=== PATIENT | female | born 1935 | race Two or more races ===

== ENCOUNTER 2017-11-30 10:37 | Emergency (ER) | payer MEDICARE, MEDICAID ==
[~2017-11-30] VITALS: Ht 154.9 cm; Wt 48.1 kg
[2017-11-30 10:50] VITALS: BP 137/78
[2017-11-30 12:21] LABS: Basophils # (auto) 0.1 uL; Basophils % (auto) 0.7 % (0.0-2.0); Eosinophils # (auto) 0.3 uL; Hematocrit 43.1 % (36.0-46.0); Hemoglobin 14.6 g/dL (12.2-16.2); Lymphocytes # (auto) 1.4 uL; Mean Corpuscular Hemoglobin 28.2 pg (28.0-32.0); Mean Corpuscular Hgb Conc. 33.9 g/dL (32.0-36.0); Mean Corpuscular Volume 83.3 fL (80.0-100.0); Monocytes # (auto) 0.7 uL; Monocytes % (auto) 7.4 % (0.0-12.0); Neutrophils # (auto) 6.9 uL; Neutrophils % (auto) 73.9 % (37.0-80.0); Nucleated Red Blood Cells % 0.1 %; Platelet Count (auto) 266 10^3/uL (140-450); Red Blood Cells 5.17 10^6/uL (4.0-5.20); Red Cell Distribution Width 13.6 % (11.8-14.3); White Blood Cell 9.4 10^3/uL (4.4-10.8)
[2017-11-30 12:55] LABS: Albumin 4.2 g/dL (3.4-5.0); BUN/Creatinine Ratio 17.8; Bilirubin, Total 0.5 mg/dL (0.2-1.0); Calcium 9.6 mg/dL (8.5-10.1); Potassium 3.7 mmol/L (3.5-5.1)
== END 2017-11-30 19:10 | disposition left against medical advice (07) ==
LOC: ER 10:37
DX: R51 Headache (principal); Z53.21 Procedure and treatment not carried out due to patient leaving prior to being seen by health care provider
CPT/HCPCS: 36415; 80053; 85025; 93005

== ENCOUNTER 2018-05-15 22:31 | Inpatient (IN) | payer MEDICARE, MEDICAID ==
[~2018-05-15] VITALS: Ht 154.9 cm; Wt 44.6 kg
[2018-05-15 23:07] LABS: Basophils # (auto) 0.1 uL; Eosinophils # (auto) 0.4 uL; Eosinophils % (auto) 4.1 % (0.0-7.0); Hematocrit 42.1 % (36.0-46.0); Hemoglobin 13.8 g/dL (12.2-16.2); Lymphocytes # (auto) 2.8 uL; Lymphocytes % (auto) 31.2 % (10.0-50.0); Mean Corpuscular Hgb Conc. 32.9 g/dL (32.0-36.0); Mean Corpuscular Volume 85.2 fL (80.0-100.0); Monocytes # (auto) 0.7 uL; Monocytes % (auto) 8.2 % (0.0-12.0); Neutrophils % (auto) 55.5 % (37.0-80.0); Platelet Count (auto) 259 10^3/uL (140-450); Red Blood Cells 4.94 10^6/uL (4.0-5.20); Red Cell Distribution Width 14.5 % (11.8-14.3); White Blood Cell 9.1 10^3/uL (4.4-10.8)
[2018-05-15 23:13] LABS: Urine Bacteria FEW /hpf (None Seen); Urine Blood 1+ /uL (Negative); Urine Specific Gravity 1.003 (1.001-1.035); Urine WBC 5 /hpf (0 - 5)
[2018-05-15 23:27] LABS: INR 0.96 (0.9-1.15); Partial Thromboplastin Time 27.6 sec (23.78-33.04); Prothrombin Time 10.3 sec (9.27-12.13)
[2018-05-15] MEDS ORDERED: KETOROLAC TROMETH 30 MG/ML 1ML VIAL IV ONE (23:30)
[2018-05-15 23:36] LABS: Alcohol, Urine < 3.0 mg/dL (0-5); Amphetamine Screen, Urine NEGATIVE (NEGATIVE); Barbiturate Scree,Urine NEGATIVE (NEGATIVE); Benzodiazephine Screen, Urine POSITIVE (NEGATIVE); Cannabinoid Screen, Urine NEGATIVE (NEGATIVE); Cocaine Screen, Urine NEGATIVE (NEGATIVE); Opiate Scree,Urine NEGATIVE (NEGATIVE)
[2018-05-15 23:37] LABS: Alanine Aminotransferase 12 U/L (13-56); Albumin 3.7 g/dL (3.4-5.0); Anion Gap 10 (5-15); Aspartate Aminotransferase 16 U/L (15-37); Blood Alcohol < 3.0 mg/dL (0-5); Blood Urea Nitrogen 19 mg/dL (7-18); Calcium 8.7 mg/dL (8.5-10.1); Carbon Dioxide 25 mmol/L (21-32); Chloride 103 mmol/L (98-107); GFR African American 93 mL/min; GFR Non-African American 77 mL/min; Glucose 92 mg/dL (74-106); Magnesium 2.2 mg/dL (1.6-2.6); Potassium 3.7 mmol/L (3.5-5.1); Sodium 138 mmol/L (136-145)
[2018-05-15 23:39] LABS: Phencyclidine Screen, Urine NEGATIVE (NEGATIVE)
[2018-05-15 23:42] LABS: Alkaline Phosphatase 80 U/L (45-117); Bilirubin, Total 0.3 mg/dL (0.2-1.0); Total Protein 7.5 g/dL (6.4-8.2)
[2018-05-16] MEDS ORDERED: CIPROFLOXACIN 400MG/200ML 200 ML IV ONE
[2018-05-16] MEDS ORDERED: SODIUM CHLORIDE 0.9% 1,000 ML IV ONE
[2018-05-16] MEDS ORDERED: ACETAMINOPHEN 325 MG TAB PO PRN (03:00)
[2018-05-16] MEDS ORDERED: NITROGLYCERIN 0.4 MG SL TAB SL PRN (03:00)
[2018-05-16] MEDS ORDERED: MORPHINE SULF(PF) 0.5MG/ML 10ML VIAL IV PRN (03:00)
[2018-05-16] MEDS ORDERED: SUMAtriptan SUCCINATE 25 MG TAB PO ONE (03:45)
[2018-05-16] MEDS: FAMOTIDINE 20 MG TAB PO SCH ×2 (10:30→21:21)
[2018-05-16] MEDS: ENOXAPARIN SOD 40 MG/0.4 ML SYRINGE SC SCH (10:30)
[2018-05-16] MEDS: NIFEdipine ER 30 MG TAB PO SCH (10:30)
[2018-05-16] MEDS: ONDANSETRON HCL 4 MG/2 ML VIAL IV PRN (11:10)
[2018-05-16] MEDS: SUMAtriptan SUCCINATE 25 MG TAB PO PRN (11:10)
[2018-05-16 20:10] VITALS: BP 122/63
[2018-05-16] MEDS: ATORVASTATIN 20 MG TAB PO SCH (21:21)
[2018-05-17] MEDS ORDERED: LEVOFLOXACIN 500MG 100 ML IV SCH (01:00)
[2018-05-17] MEDS ORDERED: ATOR20TA PO (01:58)
[2018-05-17] MEDS ORDERED: CYPR4TAB PO (01:58)
[2018-05-17] MEDS ORDERED: MECL12.554 PO (01:58)
[2018-05-17] MEDS ORDERED: NIFE30TA76 PO (01:58)
[2018-05-17 05:30] VITALS: BP 110/58
[2018-05-17 07:21] LABS: Albumin 3.1 g/dL (3.4-5.0); BUN/Creatinine Ratio 18.9; Basophils # (auto) 0 uL; Basophils % (auto) 0.6 % (0.0-2.0); Calcium 8.6 mg/dL (8.5-10.1); Eosinophils # (auto) 0.2 uL; Eosinophils % (auto) 2.9 % (0.0-7.0); Hematocrit 40.1 % (36.0-46.0); Hemoglobin 13.3 g/dL (12.2-16.2); Lymphocytes # (auto) 2.1 uL; Lymphocytes % (auto) 25.7 % (10.0-50.0); Mean Corpuscular Hemoglobin 28.7 pg (28.0-32.0); Mean Corpuscular Hgb Conc. 33.3 g/dL (32.0-36.0); Monocytes # (auto) 0.7 uL; Monocytes % (auto) 8.9 % (0.0-12.0); Neutrophils % (auto) 61.9 % (37.0-80.0); Nucleated Red Blood Cells % 0.2 %; Platelet Count (auto) 242 10^3/uL (140-450); Red Blood Cells 4.66 10^6/uL (4.0-5.20); Red Cell Distribution Width 14.4 % (11.8-14.3)
[2018-05-17 07:24] LABS: Bilirubin, Total 0.3 mg/dL (0.2-1.0); Total Protein 6.4 g/dL (6.4-8.2)
[2018-05-17 09:00] VITALS: BP 141/73
[2018-05-17] MEDS: FAMOTIDINE 20 MG TAB PO SCH ×2 (10:40→21:35)
[2018-05-17] MEDS: ENOXAPARIN SOD 40 MG/0.4 ML SYRINGE SC SCH (10:40)
[2018-05-17] MEDS: NIFEdipine ER 30 MG TAB PO SCH (10:40)
[2018-05-17 13:00] VITALS: BP 121/72
[2018-05-17] MEDS: SUMAtriptan SUCCINATE 25 MG TAB PO PRN (16:07)
[2018-05-17 18:00] VITALS: BP 137/75
[2018-05-17] MEDS: DOCUSATE SOD 100 MG CAP PO SCH (21:35)
[2018-05-17] MEDS: ATORVASTATIN 20 MG TAB PO SCH (21:35)
[2018-05-17 22:00] VITALS: BP 121/61
[2018-05-18 05:00] VITALS: BP 114/61
[2018-05-18 09:00] VITALS: BP 121/62
[2018-05-18] MEDS: FAMOTIDINE 20 MG TAB PO SCH ×2 (10:30→21:31)
[2018-05-18] MEDS: NIFEdipine ER 30 MG TAB PO SCH (10:30)
[2018-05-18] MEDS: ENOXAPARIN SOD 40 MG/0.4 ML SYRINGE SC SCH (10:31)
[2018-05-18] MEDS: DOCUSATE SOD 100 MG CAP PO SCH ×2 (10:31→21:35)
[2018-05-18] MEDS ORDERED: LORazepam 2MG/ML-1ML VIAL IV ONE (12:15)
[2018-05-18 13:00] VITALS: BP 125/66
[2018-05-18] MEDS: ATORVASTATIN 20 MG TAB PO SCH (21:31)
[2018-05-18] MEDS: HYDROcodone-ACET 5/325MG TAB PO PRN (21:38)
[2018-05-18 22:00] VITALS: BP 131/68
[2018-05-19 05:00] VITALS: BP 128/63
[2018-05-19 07:23] LABS: Cholesterol 125 mg/dL (< 200); HDL Cholesterol 42 mg/dL (40-59); LDL Cholesterol 79 mg/dL (< 100); Triglycerides 142 mg/dL (< 150)
[2018-05-19] MEDS: FAMOTIDINE 20 MG TAB PO SCH ×2 (09:13→22:00)
[2018-05-19] MEDS: DOCUSATE SOD 100 MG CAP PO SCH ×2 (09:14→22:00)
[2018-05-19] MEDS: ENOXAPARIN SOD 40 MG/0.4 ML SYRINGE SC SCH (09:14)
[2018-05-19] MEDS: NIFEdipine ER 30 MG TAB PO SCH (09:14)
[2018-05-19] MEDS: SUMAtriptan SUCCINATE 25 MG TAB PO PRN ×2 (09:15→13:30)
[2018-05-19] MEDS: ONDANSETRON HCL 4 MG/2 ML VIAL IV PRN (10:23)
[2018-05-19 21:47] VITALS: BP 149/76
[2018-05-19] MEDS: ATORVASTATIN 20 MG TAB PO SCH (22:00)
[2018-05-19] MEDS: SULFAMETHOX W/TRIMETH(800/160MG) DS TAB PO SCH (22:00)
[2018-05-19] MEDS: TEMAZEPAM 15 MG CAP PO PRN (23:44)
[2018-05-20 04:46] VITALS: BP 124/69
[2018-05-20 08:17] VITALS: BP 137/77
[2018-05-20] MEDS: FAMOTIDINE 20 MG TAB PO SCH ×2 (09:22→21:31)
[2018-05-20] MEDS: ENOXAPARIN SOD 40 MG/0.4 ML SYRINGE SC SCH (09:22)
[2018-05-20] MEDS: NIFEdipine ER 30 MG TAB PO SCH (09:23)
[2018-05-20] MEDS: DOCUSATE SOD 100 MG CAP PO SCH ×2 (09:23→21:31)
[2018-05-20] MEDS: SULFAMETHOX W/TRIMETH(800/160MG) DS TAB PO SCH ×3 (09:26→21:30)
[2018-05-20 12:46] VITALS: BP 136/74
[2018-05-20] MEDS: HYDROcodone-ACET 5/325MG TAB PO PRN (13:03)
[2018-05-20 16:42] VITALS: BP 156/83
[2018-05-20] MEDS: LORazepam 0.5 MG TAB PO PRN (17:01)
[2018-05-20] MEDS: SUMAtriptan SUCCINATE 25 MG TAB PO PRN (17:01)
[2018-05-20] MEDS: ATORVASTATIN 20 MG TAB PO SCH (21:31)
[2018-05-20 21:54] VITALS: BP 133/72
[2018-05-20] MEDS: BOOST PLUS 8 ounce PO SCH (22:00)
[2018-05-21 04:51] VITALS: BP 119/63
[2018-05-21] MEDS: BOOST PLUS 8 ounce PO SCH ×3 (06:00→21:32)
[2018-05-21 09:17] VITALS: BP 152/75
[2018-05-21] MEDS: ENOXAPARIN SOD 40 MG/0.4 ML SYRINGE SC SCH (10:01)
[2018-05-21] MEDS: DOCUSATE SOD 100 MG CAP PO SCH ×2 (10:01→21:32)
[2018-05-21] MEDS: FAMOTIDINE 20 MG TAB PO SCH ×2 (10:01→21:33)
[2018-05-21] MEDS: SULFAMETHOX W/TRIMETH(800/160MG) DS TAB PO SCH ×2 (10:02→21:31)
[2018-05-21] MEDS: NIFEdipine ER 30 MG TAB PO SCH (10:02)
[2018-05-21] MEDS: LORazepam 0.5 MG TAB PO PRN (10:04)
[2018-05-21 12:44] VITALS: BP 116/70
[2018-05-21 16:44] VITALS: BP 122/70
[2018-05-21] MEDS: ATORVASTATIN 20 MG TAB PO SCH (21:32)
[2018-05-21] MEDS: TEMAZEPAM 15 MG CAP PO PRN (21:33)
[2018-05-21 21:39] VITALS: BP 99/53
[2018-05-22 04:56] VITALS: BP 95/56
[2018-05-22] MEDS: BOOST PLUS 8 ounce PO SCH ×2 (06:00→14:04)
[2018-05-22 08:30] VITALS: BP 119/60
[2018-05-22 10:49] VITALS: BP 119/60
[2018-05-22 12:07] VITALS: BP 138/78
[2018-05-22] MEDS: DOCUSATE SOD 100 MG CAP PO SCH (12:54)
[2018-05-22] MEDS: SULFAMETHOX W/TRIMETH(800/160MG) DS TAB PO SCH (12:54)
[2018-05-22] MEDS: FAMOTIDINE 20 MG TAB PO SCH (12:54)
[2018-05-22] MEDS: NIFEdipine ER 30 MG TAB PO SCH (12:55)
[2018-05-22] MEDS: ENOXAPARIN SOD 40 MG/0.4 ML SYRINGE SC SCH (12:55)
== END 2018-05-22 19:00 | disposition home or self-care (01) | DRG 52 ==
LOC: ER 22:35 → TELE 22:36 → TELE-CENTR 05-16 19:50
PROVIDERS: ADMIT Nurse Practitioner; ATTEND Internal Medicine Pulmonary Disease
DX: G93.41 Metabolic encephalopathy (principal); E46 Unspecified protein-calorie malnutrition; F03.90 Unspecified dementia, unspecified severity, without behavioral disturbance, psychotic disturbance, mood disturbance, and anxiety; N39.0 Urinary tract infection, site not specified; K59.00 Constipation, unspecified; I10 Essential (primary) hypertension; R51 Headache; B96.20 Unspecified Escherichia coli [E. coli] as the cause of diseases classified elsewhere; E78.5 Hyperlipidemia, unspecified; F41.9 Anxiety disorder, unspecified; I70.0 Atherosclerosis of aorta; I70.90 Unspecified atherosclerosis; Z68.1 Body mass index [BMI] 19.9 or less, adult; Z88.0 Allergy status to penicillin; Z79.899 Other long term (current) drug therapy
CPT/HCPCS: 36415; 70450; 70551; 71045; 80053; 80061; 80307; 80320; 81001; 82962; 83605; 83735; 84484; 85025; 85379; 85610; 85652; 85730; 87040; 87086; 87088; 87186; 93306; 93886; 94761; 95819; 96365; 96372; 96375; 97116; 97163; 97530; J1885; J1956; J2405

== ENCOUNTER 2018-08-10 18:39 | Inpatient (IN) | payer MEDICARE, MEDICAID ==
[~2018-08-10] VITALS: Ht 152.4 cm; Wt 41.2 kg
[~2018-08-10 18:39] MED LIST: ATOR20TA PO; CYPR4TAB50 PO; MECL12.554 PO; NIFE30TA76 PO
[2018-08-10] MEDS ORDERED: SODIUM CHLORIDE 0.9% 1,000 ML IV ONE (20:17)
[2018-08-10 20:21] LABS: Alanine Aminotransferase 9 U/L (13-56); Albumin 3.9 g/dL (3.4-5.0); Anion Gap 11 (5-15); Aspartate Aminotransferase 17 U/L (15-37); Blood Urea Nitrogen 15 mg/dL (7-18); Calcium 8.9 mg/dL (8.5-10.1); Carbon Dioxide 22 mmol/L (21-32); Chloride 97 mmol/L (98-107); GFR African American 68 mL/min; GFR Non-African American 56 mL/min; Glucose 152 mg/dL (74-106); Potassium 3.5 mmol/L (3.5-5.1); Sodium 130 mmol/L (136-145)
[2018-08-10 20:24] LABS: Basophils # (auto) 0.1 uL; Basophils % (auto) 0.5 % (0.0-2.0); Eosinophils # (auto) 0 uL; Eosinophils % (auto) 0.4 % (0.0-7.0); Hematocrit 40.8 % (36.0-46.0); Hemoglobin 13.5 g/dL (12.2-16.2); Lymphocytes # (auto) 1.4 uL; Lymphocytes % (auto) 12.7 % (10.0-50.0); Mean Corpuscular Hemoglobin 28.5 pg (28.0-32.0); Mean Corpuscular Hgb Conc. 33.2 g/dL (32.0-36.0); Mean Corpuscular Volume 85.8 fL (80.0-100.0); Monocytes % (auto) 8.5 % (0.0-12.0); Neutrophils # (auto) 8.8 uL; Neutrophils % (auto) 77.9 % (37.0-80.0); Nucleated Red Blood Cells % 0.1 %; Platelet Count (auto) 216 10^3/uL (140-450); Red Blood Cells 4.75 10^6/uL (4.0-5.20); Red Cell Distribution Width 14.1 % (11.8-14.3); White Blood Cell 11.3 10^3/uL (4.4-10.8)
[2018-08-10 20:30] LABS: Alkaline Phosphatase 78 U/L (45-117); Bilirubin, Total 0.5 mg/dL (0.2-1.0); Total Protein 7.7 g/dL (6.4-8.2)
[2018-08-10] MEDS ORDERED: LEVOFLOXACIN 500MG 100 ML IV ONE (20:30)
[2018-08-10 22:42] LABS: Urine Bacteria NONE SEEN /hpf (None Seen); Urine Blood 2+ /uL (Negative); Urine Mucus FEW (None Seen); Urine Specific Gravity 1.011 (1.001-1.035); Urine WBC 1 /hpf (0 - 5)
[2018-08-10] MEDS ORDERED: ALBUTEROL SULF 2.5 MG/0.5ML(0.5%) NEB SOLN NEB PRN (23:00)
[2018-08-10] MEDS ORDERED: DOCUSATE SOD 100 MG CAP PO PRN (23:00)
[2018-08-10] MEDS ORDERED: ONDANSETRON HCL 4 MG/2 ML VIAL IV PRN (23:00)
[2018-08-10] MEDS ORDERED: SODIUM CHLORIDE 0.9% 1,000 ML IV SCH (23:00)
[2018-08-10 23:40] VITALS: BP 159/80
[2018-08-10] MEDS: HYDROcodone-ACET 5/325MG TAB PO PRN (23:59)
[2018-08-11] MEDS ORDERED: SODIUM CHLORIDE 0.9% 1,000 ML IV ONE (01:00)
[2018-08-11] MEDS ORDERED: methylPREDNISolone SOD SUCC 125 MG/2 ML VL IV ONE (01:00)
[2018-08-11] MEDS ORDERED: IBUP200T76 PO (03:09)
[2018-08-11] MEDS ORDERED: ASPITAB34 OR (03:09)
[2018-08-11] MEDS ORDERED: LORA-654 PO (03:09)
[2018-08-11] MEDS ORDERED: ESOM40CA39 PO (03:09)
[2018-08-11] MEDS ORDERED: ALBUAER3 IN (03:09)
[2018-08-11] MEDS ORDERED: ACET650T4 PO (03:09)
[2018-08-11] MEDS ORDERED: ASPI-498 OR (03:45)
[2018-08-11 05:00] VITALS: BP 129/60
[2018-08-11 06:34] LABS: Basophils # (auto) 0 uL; Basophils % (auto) 0.1 % (0.0-2.0); Eosinophils # (auto) 0 uL; Hematocrit 38.5 % (36.0-46.0); Lymphocytes # (auto) 0.5 uL; Mean Corpuscular Hemoglobin 28.8 pg (28.0-32.0); Mean Corpuscular Hgb Conc. 33.7 g/dL (32.0-36.0); Mean Corpuscular Volume 85.5 fL (80.0-100.0); Monocytes # (auto) 0.2 uL; Monocytes % (auto) 1.9 % (0.0-12.0); Neutrophils # (auto) 7.6 uL; Platelet Count (auto) 197 10^3/uL (140-450); Red Blood Cells 4.51 10^6/uL (4.0-5.20); White Blood Cell 8.3 10^3/uL (4.4-10.8)
[2018-08-11 06:54] LABS: Albumin 3.2 g/dL (3.4-5.0); Blood Urea Nitrogen 12 mg/dL (7-18); Chloride 105 mmol/L (98-107); Potassium 3.6 mmol/L (3.5-5.1); Sodium 137 mmol/L (136-145)
[2018-08-11 06:57] LABS: Anion Gap 8 (5-15); Aspartate Aminotransferase 8 U/L (15-37); BUN/Creatinine Ratio 17.1; Carbon Dioxide 24 mmol/L (21-32); GFR African American 103 mL/min; GFR Non-African American 85 mL/min; Glucose 148 mg/dL (74-106)
[2018-08-11 07:02] LABS: Alanine Aminotransferase 9 U/L (13-56); Alkaline Phosphatase 65 U/L (45-117); Bilirubin, Total 0.4 mg/dL (0.2-1.0); Total Protein 6.8 g/dL (6.4-8.2)
[2018-08-11 08:00] VITALS: BP_SYST 122; BP_SYST 132; BP_DIAS 66; BP_DIAS 72
[2018-08-11] MEDS: HYDROcodone-ACET 5/325MG TAB PO PRN ×2 (08:54→16:45)
[2018-08-11] MEDS ORDERED: methylPREDNISolone SOD SUCC 125 MG/2 ML VL IV SCH (10:00)
[2018-08-11] MEDS: ENOXAPARIN SOD 30 MG/0.3 ML SYRINGE SC SCH (10:06)
[2018-08-11] MEDS: NIFEdipine ER 30 MG TAB PO SCH (10:07)
[2018-08-11] MEDS: FAMOTIDINE 20 MG TAB PO SCH (10:07)
[2018-08-11 12:00] VITALS: BP 130/64
[2018-08-11] MEDS: ACETAMINOPHEN 325 MG TAB PO PRN (12:17)
[2018-08-11 17:00] VITALS: BP 136/72
[2018-08-11] MEDS: guaiFENesin-DM 100/10mg/5ml SYR PO PRN (17:48)
[2018-08-11] MEDS: ATORVASTATIN 20 MG TAB PO SCH (21:07)
[2018-08-11] MEDS: methylPREDNISolone SOD SUCC 125 MG/2 ML VL IV SCH (21:07)
[2018-08-11] MEDS: TEMAZEPAM 15 MG CAP PO PRN (21:10)
[2018-08-11 21:55] VITALS: BP 123/63
[2018-08-12] MEDS: HYDROcodone-ACET 5/325MG TAB PO PRN ×2 (04:36→16:00)
[2018-08-12 05:00] VITALS: BP 137/67
[2018-08-12] MEDS ORDERED: SODIUM CHLORIDE 0.9% 1,000 ML IV SCH (05:00)
[2018-08-12 06:30] LABS: Basophils # (auto) 0 uL; Basophils % (auto) 0.1 % (0.0-2.0); Eosinophils # (auto) 0 uL; Hematocrit 38.4 % (36.0-46.0); Hemoglobin 12.6 g/dL (12.2-16.2); Lymphocytes # (auto) 0.8 uL; Lymphocytes % (auto) 6.7 % (10.0-50.0); Mean Corpuscular Hemoglobin 28.4 pg (28.0-32.0); Mean Corpuscular Hgb Conc. 32.9 g/dL (32.0-36.0); Mean Corpuscular Volume 86.3 fL (80.0-100.0); Monocytes # (auto) 0.6 uL; Monocytes % (auto) 4.9 % (0.0-12.0); Neutrophils # (auto) 10.8 uL; Neutrophils % (auto) 88.3 % (37.0-80.0); Platelet Count (auto) 209 10^3/uL (140-450); Red Blood Cells 4.45 10^6/uL (4.0-5.20); White Blood Cell 12.2 10^3/uL (4.4-10.8)
[2018-08-12 06:47] LABS: BUN/Creatinine Ratio 20.4; Calcium 8.2 mg/dL (8.5-10.1); Magnesium 2.2 mg/dL (1.6-2.6); Potassium 3.1 mmol/L (3.5-5.1)
[2018-08-12 08:21] VITALS: BP 134/83
[2018-08-12] MEDS: FAMOTIDINE 20 MG TAB PO SCH (09:49)
[2018-08-12] MEDS: methylPREDNISolone SOD SUCC 125 MG/2 ML VL IV SCH ×2 (09:49→21:31)
[2018-08-12] MEDS: NIFEdipine ER 30 MG TAB PO SCH (09:50)
[2018-08-12] MEDS: ENOXAPARIN SOD 30 MG/0.3 ML SYRINGE SC SCH (09:50)
[2018-08-12 12:30] VITALS: BP 156/66
[2018-08-12] MEDS ORDERED: POTASSIUM CHL 20 Meq TABLET PO ONE (14:00)
[2018-08-12] MEDS ORDERED: LORazepam 0.5 MG TAB PO PRN (14:00)
[2018-08-12] MEDS: SODIUM CHLORIDE 0.9% 1,000 ML IV SCH (14:00)
[2018-08-12] MEDS: ASPirin-EC 81 mg tab PO SCH (16:00)
[2018-08-12 16:12] VITALS: BP 139/67
[2018-08-12] MEDS: ATORVASTATIN 20 MG TAB PO SCH (21:31)
[2018-08-12 21:32] VITALS: BP 115/48
[2018-08-12] MEDS: TEMAZEPAM 15 MG CAP PO PRN (21:32)
[2018-08-12] MEDS: ACETAMINOPHEN 325 MG TAB PO PRN (21:32)
[2018-08-12] MEDS ORDERED: LEVOFLOXACIN 750MG 150 ML IV SCH (22:00)
[2018-08-13 05:48] LABS: Basophils # (auto) 0 uL; Basophils % (auto) 0.1 % (0.0-2.0); Eosinophils # (auto) 0 uL; Hematocrit 41.5 % (36.0-46.0); Hemoglobin 13.5 g/dL (12.2-16.2); Lymphocytes # (auto) 0.9 uL; Lymphocytes % (auto) 6.7 % (10.0-50.0); Mean Corpuscular Hgb Conc. 32.6 g/dL (32.0-36.0); Mean Corpuscular Volume 85.9 fL (80.0-100.0); Monocytes # (auto) 0.3 uL; Neutrophils # (auto) 12.5 uL; Neutrophils % (auto) 91.2 % (37.0-80.0); Nucleated Red Blood Cells % 0.1 %; Platelet Count (auto) 239 10^3/uL (140-450); Red Blood Cells 4.83 10^6/uL (4.0-5.20); Red Cell Distribution Width 14.4 % (11.8-14.3); White Blood Cell 13.7 10^3/uL (4.4-10.8)
[2018-08-13 05:49] VITALS: BP 111/63
[2018-08-13 08:30] VITALS: BP 135/77
[2018-08-13] MEDS: ENOXAPARIN SOD 30 MG/0.3 ML SYRINGE SC SCH (09:55)
[2018-08-13] MEDS: ASPirin-EC 81 mg tab PO SCH (09:55)
[2018-08-13] MEDS: methylPREDNISolone SOD SUCC 125 MG/2 ML VL IV SCH ×2 (09:55→22:10)
[2018-08-13] MEDS: FAMOTIDINE 20 MG TAB PO SCH (09:56)
[2018-08-13] MEDS: NIFEdipine ER 30 MG TAB PO SCH (09:57)
[2018-08-13 12:54] VITALS: BP 119/56
[2018-08-13] MEDS: HYDROcodone-ACET 5/325MG TAB PO PRN (13:33)
[2018-08-13] MEDS: SODIUM CHLORIDE 0.9% 1,000 ML IV SCH (16:38)
[2018-08-13 16:46] VITALS: BP 148/76
[2018-08-13 22:00] VITALS: BP 138/67
[2018-08-13] MEDS: ATORVASTATIN 20 MG TAB PO SCH (22:10)
[2018-08-13 22:40] VITALS: BP 148/76
[2018-08-13] MEDS: TEMAZEPAM 15 MG CAP PO PRN (22:42)
[2018-08-13] MEDS: ACETAMINOPHEN 325 MG TAB PO PRN (22:42)
[2018-08-14] MEDS: SODIUM CHLORIDE 0.9% 1,000 ML IV SCH (03:25)
[2018-08-14 05:00] VITALS: BP 132/60
[2018-08-14 06:14] LABS: Basophils # (auto) 0 uL; Eosinophils # (auto) 0 uL; Hematocrit 41.1 % (36.0-46.0); Hemoglobin 13.5 g/dL (12.2-16.2); Lymphocytes # (auto) 0.9 uL; Lymphocytes % (auto) 8.3 % (10.0-50.0); Mean Corpuscular Hemoglobin 28.3 pg (28.0-32.0); Mean Corpuscular Hgb Conc. 32.8 g/dL (32.0-36.0); Mean Corpuscular Volume 86.3 fL (80.0-100.0); Monocytes # (auto) 0.4 uL; Monocytes % (auto) 4.1 % (0.0-12.0); Neutrophils % (auto) 87.6 % (37.0-80.0); Nucleated Red Blood Cells % 0.1 %; Platelet Count (auto) 236 10^3/uL (140-450); Red Blood Cells 4.77 10^6/uL (4.0-5.20); Red Cell Distribution Width 14.3 % (11.8-14.3); White Blood Cell 10.3 10^3/uL (4.4-10.8)
[2018-08-14 08:33] VITALS: BP 139/68
[2018-08-14] MEDS: FAMOTIDINE 20 MG TAB PO SCH (09:37)
[2018-08-14] MEDS: NIFEdipine ER 30 MG TAB PO SCH (09:37)
[2018-08-14] MEDS: ENOXAPARIN SOD 30 MG/0.3 ML SYRINGE SC SCH (09:37)
[2018-08-14] MEDS: HYDROcodone-ACET 5/325MG TAB PO PRN (09:37)
[2018-08-14] MEDS: ASPirin-EC 81 mg tab PO SCH (09:38)
[2018-08-14] MEDS ORDERED: methylPREDNISolone SOD SUCC 40 MG/ML VL IV SCH (10:00)
[2018-08-14] MEDS ORDERED: HYDROcodone-ACET 5/325MG TAB PO PRN (11:15)
[2018-08-14] MEDS ORDERED: LEVOFLOXACIN 750MG 150 ML IV ONE (11:30)
[2018-08-14 13:00] VITALS: BP 172/74
[2018-08-14 17:00] VITALS: BP 119/57
[2018-08-14] MEDS: ATORVASTATIN 20 MG TAB PO SCH (21:32)
[2018-08-14] MEDS: TEMAZEPAM 15 MG CAP PO PRN (21:32)
[2018-08-14] MEDS: methylPREDNISolone SOD SUCC 40 MG/ML VL IV SCH (21:32)
[2018-08-14] MEDS: guaiFENesin-DM 100/10mg/5ml SYR PO PRN (21:37)
[2018-08-14 22:00] VITALS: BP 140/69
[2018-08-15 05:00] VITALS: BP 149/70
[2018-08-15 06:21] LABS: INR 1.05 (0.9-1.15); Prothrombin Time 11.2 sec (9.27-12.13)
[2018-08-15 09:00] VITALS: BP 151/75
[2018-08-15] MEDS ORDERED: LEVOFLOXACIN 750MG 150 ML IV SCH (10:00)
[2018-08-15] MEDS: ENOXAPARIN SOD 30 MG/0.3 ML SYRINGE SC SCH (10:00)
[2018-08-15] MEDS: ASPirin-EC 81 mg tab PO SCH (10:52)
[2018-08-15] MEDS: FAMOTIDINE 20 MG TAB PO SCH (10:53)
[2018-08-15] MEDS: NIFEdipine ER 30 MG TAB PO SCH (10:53)
[2018-08-15] MEDS: methylPREDNISolone SOD SUCC 40 MG/ML VL IV SCH (10:55)
[2018-08-15] MEDS ORDERED: LEVO750T2 PO (11:07)
[2018-08-15] MEDS ORDERED: SACC250C PO (11:07)
[2018-08-15 12:04] VITALS: BP 151/75
[2018-08-15 13:00] VITALS: BP 139/70
[2018-08-15] MEDS: guaiFENesin-DM 100/10mg/5ml SYR PO PRN (13:24)
[2018-08-16] MEDS ORDERED: LEVOFLOXACIN 750MG 150 ML IV SCH (10:00)
== END 2018-08-15 14:35 | disposition home or self-care (01) | DRG 140 ==
LOC: ER 18:39 → EAST 18:40
PROVIDERS: ADMIT Nurse Practitioner; ATTEND Internal Medicine
DX: J44.1 Chronic obstructive pulmonary disease with (acute) exacerbation (principal); J69.0 Pneumonitis due to inhalation of food and vomit; J96.00 Acute respiratory failure, unspecified whether with hypoxia or hypercapnia; A31.0 Pulmonary mycobacterial infection; J44.0 Chronic obstructive pulmonary disease with (acute) lower respiratory infection; E78.5 Hyperlipidemia, unspecified; F41.9 Anxiety disorder, unspecified; I10 Essential (primary) hypertension; Z86.73 Personal history of transient ischemic attack (TIA), and cerebral infarction without residual deficits; Z88.0 Allergy status to penicillin; Z79.899 Other long term (current) drug therapy; I25.2 Old myocardial infarction; Z79.82 Long term (current) use of aspirin
CPT/HCPCS: 36415; 71046; 71250; 80048; 80053; 81001; 83605; 83735; 83880; 84132; 84484; 85025; 85379; 85610; 87040; 87070; 87077; 87086; 87186; 87205; 87804; 93005; 96361; 96365; 96366; 96375; 97116; 97163; J1956

== ENCOUNTER 2018-11-14 18:37 | Emergency (ER) | payer MEDICARE, MEDICAID ==
[~2018-11-14] VITALS: Ht 154.9 cm; Wt 59.0 kg
[~2018-11-14 18:37] MED LIST changes: +ACET650T4 PO; +ALBUAER3 IN; +ASPI-498 OR; +ASPITAB34 OR; -CYPR4TAB50 PO; +ESOM40CA39 PO; +IBUP200T76 PO; +LEVO750T2 PO; +LORA-654 PO; -MECL12.554 PO; +SACC250C PO
[2018-11-14] MEDS ORDERED: ASPirin 81 mg TAB PO ONE (19:00)
[2018-11-14] MEDS ORDERED: SODIUM CHLORIDE 0.9% 500 ML IV ONE ×2 (19:15→21:15)
[2018-11-14 19:35] LABS: Basophils # (auto) 0.1 uL; Basophils % (auto) 0.6 % (0.0-2.0); Eosinophils # (auto) 0.2 uL; Eosinophils % (auto) 2.4 % (0.0-7.0); Hematocrit 42.7 % (36.0-46.0); Hemoglobin 14.1 g/dL (12.2-16.2); Lymphocytes # (auto) 2.7 uL; Lymphocytes % (auto) 27.4 % (10.0-50.0); Mean Corpuscular Hemoglobin 28.4 pg (28.0-32.0); Mean Corpuscular Hgb Conc. 32.9 g/dL (32.0-36.0); Mean Corpuscular Volume 86.2 fL (80.0-100.0); Monocytes # (auto) 0.8 uL; Monocytes % (auto) 8.3 % (0.0-12.0); Neutrophils # (auto) 5.9 uL; Neutrophils % (auto) 61.3 % (37.0-80.0); Nucleated Red Blood Cells % 0.1 %; Platelet Count (auto) 244 10^3/uL (140-450); Red Blood Cells 4.96 10^6/uL (4.0-5.20); White Blood Cell 9.7 10^3/uL (4.4-10.8)
[2018-11-14 19:53] LABS: Alanine Aminotransferase 11 U/L (13-56); Albumin 4.1 g/dL (3.4-5.0); Anion Gap 12 (5-15); Aspartate Aminotransferase 15 U/L (15-37); BUN/Creatinine Ratio 22.2; Blood Urea Nitrogen 18 mg/dL (7-18); Calcium 8.9 mg/dL (8.5-10.1); Carbon Dioxide 21 mmol/L (21-32); Chloride 106 mmol/L (98-107); GFR African American 87 mL/min; GFR Non-African American 72 mL/min; Glucose 117 mg/dL (74-106); Sodium 139 mmol/L (136-145)
[2018-11-14 19:54] LABS: INR 0.98 (0.9-1.15); Partial Thromboplastin Time 27.7 sec (23.78-33.04); Prothrombin Time 10.5 sec (9.27-12.13)
[2018-11-14 19:58] LABS: Alkaline Phosphatase 78 U/L (45-117); Bilirubin, Total 0.4 mg/dL (0.2-1.0); Total Protein 7.7 g/dL (6.4-8.2)
[2018-11-14 20:35] LABS: Urine Bacteria FEW /hpf (None Seen); Urine Blood 2+ /uL (Negative); Urine Specific Gravity 1.005 (1.001-1.035); Urine WBC 14 /hpf (0 - 5)
[2018-11-14] MEDS ORDERED: D5W/ SOD CHL 0.9%/KCL 20MEQ 1,000 ML IV ONE (21:15)
[2018-11-14] MEDS ORDERED: cefTRIAXone 1GM/50ML D5W 50 ML IV ONE (21:15)
[2018-11-14] MEDS ORDERED: POTASSIUM CHL 20 Meq TABLET PO ONE (23:30)
[2018-11-14 23:41] VITALS: BP 140/75
== END 2018-11-14 23:49 | disposition home or self-care (01) ==
LOC: EDBD 18:37 → ER 18:39
DX: N39.0 Urinary tract infection, site not specified (principal); E86.0 Dehydration; I10 Essential (primary) hypertension; E78.5 Hyperlipidemia, unspecified; I25.2 Old myocardial infarction; Z86.73 Personal history of transient ischemic attack (TIA), and cerebral infarction without residual deficits; Z79.899 Other long term (current) drug therapy; Z88.0 Allergy status to penicillin
CPT/HCPCS: 36415; 71045; 80053; 81001; 83605; 83735; 83880; 84443; 84484; 85025; 85379; 85610; 85730; 87040; 87086; 93005; 94761; 96361; 96365; 99284; J0696; J7030

== ENCOUNTER 2019-02-21 19:31 | Emergency (ER) | payer MEDICARE, MEDICAID ==
[~2019-02-21] VITALS: Ht 152.4 cm; Wt 47.6 kg
[2019-02-21 22:24] LABS: Basophils # (auto) 0 uL; Basophils % (auto) 0.5 % (0.0-2.0); Eosinophils # (auto) 0.1 uL; Eosinophils % (auto) 0.9 % (0.0-7.0); Hematocrit 43.1 % (36.0-46.0); Hemoglobin 14.3 g/dL (12.2-16.2); Lymphocytes # (auto) 1.5 uL; Lymphocytes % (auto) 17.2 % (10.0-50.0); Mean Corpuscular Hemoglobin 28.2 pg (28.0-32.0); Mean Corpuscular Hgb Conc. 33.1 g/dL (32.0-36.0); Mean Corpuscular Volume 85.4 fL (80.0-100.0); Monocytes # (auto) 0.9 uL; Monocytes % (auto) 10.6 % (0.0-12.0); Neutrophils # (auto) 6.1 uL; Neutrophils % (auto) 70.8 % (37.0-80.0); Platelet Count (auto) 239 10^3/uL (140-450); Red Blood Cells 5.05 10^6/uL (4.0-5.20); Red Cell Distribution Width 13.7 % (11.8-14.3); White Blood Cell 8.7 10^3/uL (4.4-10.8)
[2019-02-21 22:39] LABS: Calcium 8.9 mg/dL (8.5-10.1); Potassium 3.7 mmol/L (3.5-5.1)
[2019-02-21 22:44] LABS: Albumin 4.5 g/dL (3.4-5.0); BUN/Creatinine Ratio 10.6
[2019-02-21 22:45] LABS: Bilirubin, Total 0.5 mg/dL (0.2-1.0); Total Protein 7.9 g/dL (6.4-8.2)
[2019-02-22] MEDS ORDERED: LEVOFLOXACIN 500 MG TAB PO ONE (06:15)
[2019-02-22 07:48] VITALS: BP 131/86
[2019-02-22] MEDS ORDERED: ONDANSETRON ODT 4 MG TAB PO ONE ×2 (07:56)
== END 2019-02-22 10:13 | disposition home or self-care (01) ==
LOC: ER 19:33
DX: J40 Bronchitis, not specified as acute or chronic (principal); E78.5 Hyperlipidemia, unspecified; I10 Essential (primary) hypertension; I25.2 Old myocardial infarction; Z86.73 Personal history of transient ischemic attack (TIA), and cerebral infarction without residual deficits; Z88.0 Allergy status to penicillin; Z79.82 Long term (current) use of aspirin; Z79.899 Other long term (current) drug therapy
CPT/HCPCS: 36415; 71045; 80053; 84484; 85025; 99284; Q0162

== ENCOUNTER 2019-06-22 01:41 | Emergency (ER) | payer MEDICARE, MEDICAID ==
[~2019-06-22] VITALS: Ht 152.4 cm; Wt 45.4 kg
[~2019-06-22 01:41] MED LIST changes: -IBUP200T76 PO; +LEVO500T21 PO; -LEVO750T2 PO; -LORA-654 PO; +LORA0.5T12 PO; -SACC250C PO
[2019-06-22] MEDS ORDERED: ONDANSETRON HCL 4 MG/2 ML VIAL IV ONE (02:30)
[2019-06-22] MEDS ORDERED: NALBUPHINE HCL 10 MG/1ml INJECTION IV ONE (02:30)
[2019-06-22 02:51] LABS: Basophils # (auto) 0 uL; Basophils % (auto) 0.4 % (0.0-2.0); Eosinophils # (auto) 0.2 uL; Eosinophils % (auto) 2.3 % (0.0-7.0); Hematocrit 41.7 % (36.0-46.0); Hemoglobin 13.8 g/dL (12.2-16.2); Lymphocytes # (auto) 2.4 uL; Lymphocytes % (auto) 25.2 % (10.0-50.0); Mean Corpuscular Hemoglobin 27.2 pg (28.0-32.0); Mean Corpuscular Volume 82.5 fL (80.0-100.0); Monocytes # (auto) 0.9 uL; Monocytes % (auto) 9.1 % (0.0-12.0); Neutrophils # (auto) 6.1 uL; Nucleated Red Blood Cells % 0.1 %; Platelet Count (auto) 288 10^3/uL (140-450); Red Blood Cells 5.06 10^6/uL (4.0-5.20); Red Cell Distribution Width 13.7 % (11.8-14.3); White Blood Cell 9.7 10^3/uL (4.4-10.8)
[2019-06-22 03:18] LABS: Albumin 3.9 g/dL (3.4-5.0); Anion Gap 10 (5-15); Blood Urea Nitrogen 15 mg/dL (7-18); Carbon Dioxide 23 mmol/L (21-32); Chloride 104 mmol/L (98-107); Glucose 119 mg/dL (74-106); Lipase 100 U/L (73-393); Sodium 137 mmol/L (136-145)
[2019-06-22 03:20] LABS: Alanine Aminotransferase 12 U/L (13-56); Amylase 61 U/L (25-115); Aspartate Aminotransferase 13 U/L (15-37); BUN/Creatinine Ratio 20.5; GFR African American 98 mL/min; GFR Non-African American 81 mL/min
[2019-06-22 03:25] LABS: Alkaline Phosphatase 82 U/L (45-117); Bilirubin, Total 0.3 mg/dL (0.2-1.0); Total Protein 7.7 g/dL (6.4-8.2)
[2019-06-22 03:29] LABS: Urine Bacteria NONE SEEN /hpf (None Seen); Urine Blood 1+ /uL (Negative); Urine Specific Gravity 1.005 (1.001-1.035); Urine WBC 1 /hpf (0 - 5)
[2019-06-22] MEDS ORDERED: LORazepam 0.5 MG TAB PO ONE (09:15)
[2019-06-22] MEDS ORDERED: SULFAMETHOX W/TRIMETH(800/160MG) DS TAB PO ONE (10:00)
[2019-06-22 10:59] VITALS: BP 161/77
== END 2019-06-22 11:32 | disposition home or self-care (01) ==
LOC: ER 01:46
DX: K57.30 Diverticulosis of large intestine without perforation or abscess without bleeding (principal); J44.9 Chronic obstructive pulmonary disease, unspecified; E78.5 Hyperlipidemia, unspecified; I25.2 Old myocardial infarction; I10 Essential (primary) hypertension; Z86.73 Personal history of transient ischemic attack (TIA), and cerebral infarction without residual deficits; Z88.0 Allergy status to penicillin
CPT/HCPCS: 36415; 74176; 80053; 81001; 82150; 83690; 84484; 85025; 93005; 96374; 96375; 99284; J2300; J2405

== ENCOUNTER 2019-07-19 15:37 | Emergency (ER) | payer MEDICARE, MEDICAID ==
[~2019-07-19] VITALS: Ht 152.4 cm; Wt 40.8 kg
[2019-07-19 16:32] LABS: Basophils # (auto) 0.1 uL; Eosinophils # (auto) 0.2 uL; Hemoglobin 13.7 g/dL (12.2-16.2); Neutrophils % (auto) 66.1 % (37.0-80.0); Nucleated Red Blood Cells % 0.1 %
[2019-07-19 16:34] LABS: Basophils % (auto) 0.7 % (0.0-2.0); Eosinophils % (auto) 2.3 % (0.0-7.0); Hematocrit 41.5 % (36.0-46.0); Lymphocytes % (auto) 22.1 % (10.0-50.0); Mean Corpuscular Hgb Conc. 33.1 g/dL (32.0-36.0); Mean Corpuscular Volume 81.8 fL (80.0-100.0); Monocytes # (auto) 0.8 uL; Monocytes % (auto) 8.8 % (0.0-12.0); Platelet Count (auto) 275 10^3/uL (140-450); Red Blood Cells 5.07 10^6/uL (4.0-5.20); Red Cell Distribution Width 14.2 % (11.8-14.3)
[2019-07-19 16:52] LABS: Urine Bacteria FEW /hpf (None Seen); Urine Blood 2+ /uL (Negative); Urine Specific Gravity 1.013 (1.001-1.035); Urine WBC 6 /hpf (0 - 5)
[2019-07-19 16:59] LABS: Alanine Aminotransferase 11 U/L (13-56); Anion Gap 8 (5-15); Aspartate Aminotransferase 12 U/L (15-37); Blood Urea Nitrogen 13 mg/dL (7-18); Calcium 8.9 mg/dL (8.5-10.1); Carbon Dioxide 25 mmol/L (21-32); Chloride 101 mmol/L (98-107); GFR African American 87 mL/min; GFR Non-African American 72 mL/min; Glucose 87 mg/dL (74-106); Potassium 4.1 mmol/L (3.5-5.1); Sodium 134 mmol/L (136-145)
[2019-07-19] MEDS ORDERED: SODIUM CHLORIDE 0.9% 1,000 ML IV ONE (17:03)
[2019-07-19 17:04] LABS: Alkaline Phosphatase 67 U/L (45-117); Bilirubin, Total 0.4 mg/dL (0.2-1.0); Total Protein 7.3 g/dL (6.4-8.2)
[2019-07-19] MEDS ORDERED: cefTRIAXone 1GM/50ML D5W 50 ML IV ONE (17:15)
[2019-07-19 18:10] VITALS: BP 154/61
== END 2019-07-19 19:55 | disposition home or self-care (01) ==
LOC: ER 15:43
DX: N39.0 Urinary tract infection, site not specified (principal); E86.0 Dehydration; J44.9 Chronic obstructive pulmonary disease, unspecified; E78.5 Hyperlipidemia, unspecified; I10 Essential (primary) hypertension; R42 Dizziness and giddiness; I25.2 Old myocardial infarction; Z88.0 Allergy status to penicillin; Z79.899 Other long term (current) drug therapy
CPT/HCPCS: 36415; 80053; 81001; 84484; 85025; 94761; 96365; 99284; J0696; J7030

== ENCOUNTER 2019-08-07 16:33 | Inpatient (IN) | payer MEDICARE, MEDICAID | END 2019-08-11 11:30 | disposition home health service (06) | LOC: TELE-EAST 21:22 → ER 16:33 → TELE 16:34 → TELE-EAST 21:25 | DX: K92.2 Gastrointestinal hemorrhage, unspecified (principal); N39.0 Urinary tract infection, site not specified; E78.5 Hyperlipidemia, unspecified; I10 Essential (primary) hypertension; K21.9 Gastro-esophageal reflux disease without esophagitis; Z86.73 Personal history of transient ischemic attack (TIA), and cerebral infarction without residual deficits; M79.18 Myalgia, other site; R07.89 Other chest pain; F41.9 Anxiety disorder, unspecified ==

== ENCOUNTER 2019-10-06 18:34 | Emergency (ER) | payer MEDICARE, MEDICAID ==
[~2019-10-06] VITALS: Ht 152.4 cm; Wt 54.4 kg
[~2019-10-06 18:34] MED LIST changes: -ACET650T4 PO; +AML5T PO; -ASPI-498 OR; -ASPITAB34 OR; -ESOM40CA39 PO; -LEVO500T21 PO; +LISI-646 PO; +MET25T PO; -NIFE30TA76 PO; +PANT40T PO; +PANT40TA2 PO
[2019-10-06 19:06] LABS: Basophils # (auto) 0.1 uL; Basophils % (auto) 0.7 % (0.0-2.0); Eosinophils # (auto) 0.1 uL; Hematocrit 37.9 % (36.0-46.0); Hemoglobin 12.5 g/dL (12.2-16.2); Lymphocytes # (auto) 2.1 uL; Lymphocytes % (auto) 17.2 % (10.0-50.0); Mean Corpuscular Hemoglobin 26.8 pg (28.0-32.0); Mean Corpuscular Hgb Conc. 32.9 g/dL (32.0-36.0); Mean Corpuscular Volume 81.3 fL (80.0-100.0); Monocytes # (auto) 1.1 uL; Monocytes % (auto) 8.6 % (0.0-12.0); Neutrophils # (auto) 8.9 uL; Neutrophils % (auto) 72.5 % (37.0-80.0); Platelet Count (auto) 262 10^3/uL (140-450); Red Blood Cells 4.66 10^6/uL (4.0-5.20); Red Cell Distribution Width 14.8 % (11.8-14.3); White Blood Cell 12.2 10^3/uL (4.4-10.8)
[2019-10-06 19:29] LABS: Albumin 3.7 g/dL (3.4-5.0); Anion Gap 9 (5-15); Blood Urea Nitrogen 19 mg/dL (7-18); Calcium 8.1 mg/dL (8.5-10.1); Carbon Dioxide 22 mmol/L (21-32); Chloride 95 mmol/L (98-107); Glucose 142 mg/dL (74-106); Potassium 3.8 mmol/L (3.5-5.1); Sodium 126 mmol/L (136-145)
[2019-10-06 19:35] LABS: Alanine Aminotransferase 9 U/L (13-56); Alkaline Phosphatase 67 U/L (45-117); Aspartate Aminotransferase 11 U/L (15-37); BUN/Creatinine Ratio 25.3; Bilirubin, Total 0.4 mg/dL (0.2-1.0); GFR African American 95 mL/min; GFR Non-African American 78 mL/min; Total Protein 7.1 g/dL (6.4-8.2)
[2019-10-06 22:15] LABS: Urine Bacteria FEW /hpf (None Seen); Urine Blood 2+ /uL (Negative); Urine Specific Gravity 1.006 (1.001-1.035); Urine WBC 6 /hpf (0 - 5)
[2019-10-07] MEDS ORDERED: CIPROFLOXACIN 400MG/200ML 200 ML IV ONE (02:00)
[2019-10-07] MEDS ORDERED: HYDROcodone-ACET 5/325MG TAB PO ONE (02:00)
[2019-10-07 03:01] VITALS: BP 127/110
== END 2019-10-07 04:21 | disposition home or self-care (01) ==
LOC: EDBD 18:34 → ER 18:41
DX: M25.512 Pain in left shoulder (principal); K21.9 Gastro-esophageal reflux disease without esophagitis; F41.9 Anxiety disorder, unspecified; I10 Essential (primary) hypertension; N39.0 Urinary tract infection, site not specified; M19.012 Primary osteoarthritis, left shoulder; J44.9 Chronic obstructive pulmonary disease, unspecified; R42 Dizziness and giddiness; E78.5 Hyperlipidemia, unspecified; I25.2 Old myocardial infarction; Z86.73 Personal history of transient ischemic attack (TIA), and cerebral infarction without residual deficits
CPT/HCPCS: 36415; 70450; 71045; 72125; 73200; 80053; 81001; 83605; 84484; 85025; 93005; 96365; 99284; J0744; J7030

== ENCOUNTER 2019-10-17 18:22 | Inpatient (IN) | payer MEDICARE, MEDICAID ==
[~2019-10-17] VITALS: Ht 157.5 cm; Wt 45.4 kg
[2019-10-17 19:13] LABS: Basophils # (auto) 0.1 uL; Eosinophils # (auto) 0.1 uL; Eosinophils % (auto) 1.1 % (0.0-7.0); Neutrophils # (auto) 5.6 uL; Neutrophils % (auto) 69.6 % (37.0-80.0); White Blood Cell 8.1 10^3/uL (4.4-10.8)
[2019-10-17 19:17] LABS: Basophils % (auto) 0.6 % (0.0-2.0); Hematocrit 38.8 % (36.0-46.0); Hemoglobin 13.1 g/dL (12.2-16.2); Lymphocytes # (auto) 1.5 uL; Lymphocytes % (auto) 18.5 % (10.0-50.0); Mean Corpuscular Hemoglobin 27.2 pg (28.0-32.0); Mean Corpuscular Hgb Conc. 33.7 g/dL (32.0-36.0); Mean Corpuscular Volume 80.7 fL (80.0-100.0); Monocytes # (auto) 0.8 uL; Monocytes % (auto) 10.2 % (0.0-12.0); Nucleated Red Blood Cells % 0.1 %; Platelet Count (auto) 234 10^3/uL (140-450); Red Blood Cells 4.81 10^6/uL (4.0-5.20)
[2019-10-17 19:27] LABS: Chloride 91 mmol/L (98-107); Potassium 3.6 mmol/L (3.5-5.1); Sodium 126 mmol/L (136-145)
[2019-10-17 19:36] LABS: Alanine Aminotransferase 13 U/L (13-56); Albumin 3.9 g/dL (3.4-5.0); Alkaline Phosphatase 80 U/L (45-117); Anion Gap 12 (5-15); Aspartate Aminotransferase 19 U/L (15-37); BUN/Creatinine Ratio 15.4; Bilirubin, Total 0.4 mg/dL (0.2-1.0); Blood Urea Nitrogen 12 mg/dL (7-18); Calcium 8.3 mg/dL (8.5-10.1); Carbon Dioxide 23 mmol/L (21-32); GFR African American 90 mL/min; GFR Non-African American 75 mL/min; Glucose 118 mg/dL (74-106); Total Protein 7.4 g/dL (6.4-8.2)
[2019-10-17] MEDS ORDERED: SODIUM CHLORIDE 0.9% 1,000 ML IV ONE (20:45)
[2019-10-17] MEDS ORDERED: ONDANSETRON HCL 4 MG/2 ML VIAL IV ONE (20:45)
[2019-10-17] MEDS ORDERED: MORPHINE SULF INJ 2 MG/ML SYRINGE 1ML IV ONE (20:45)
[2019-10-17 20:47] LABS: INR 1.02 (0.9-1.15); Partial Thromboplastin Time 29.9 sec (23.64-32.05)
[2019-10-18 01:27] LABS: Urine WBC None Seen /hpf (0 - 5)
[2019-10-18] MEDS ORDERED: MORPHINE SULF INJ 2 MG/ML SYRINGE 1ML IV ONE (01:30)
[2019-10-18] MEDS ORDERED: ONDANSETRON HCL 4 MG/2 ML VIAL IV ONE (01:30)
[2019-10-18 01:32] LABS: Urine Bacteria NONE SEEN /hpf (None Seen); Urine Blood 2+ /uL (Negative); Urine Specific Gravity 1.003 (1.001-1.035)
[2019-10-18] MEDS ORDERED: ONDANSETRON HCL 4 MG/2 ML VIAL IV PRN (05:15)
[2019-10-18] MEDS ORDERED: ACETAMINOPHEN 325 MG TAB PO PRN (05:15)
[2019-10-18] MEDS ORDERED: SODIUM CHLORIDE 0.9% 1,000 ML IV SCH (05:15)
[2019-10-18] MEDS ORDERED: LISINOPRIL 10 MG TAB PO SCH (10:00)
[2019-10-18] MEDS ORDERED: amLODIPine BESYLATE 5 MG TAB PO SCH (10:00)
[2019-10-18] MEDS ORDERED: PANTOPRAZOLE 40 MG TAB PO SCH (10:00)
[2019-10-18] MEDS ORDERED: METOPROLOL TARTRATE 25 MG TAB PO SCH (10:00)
[2019-10-18 10:02] LABS: Eosinophils # (auto) 0.1 uL; Nucleated Red Blood Cells % 0.1 %
[2019-10-18 10:05] LABS: Basophils # (auto) 0.1 uL; Basophils % (auto) 0.7 % (0.0-2.0); Eosinophils % (auto) 0.8 % (0.0-7.0); Hematocrit 41.7 % (36.0-46.0); Hemoglobin 13.7 g/dL (12.2-16.2); Lymphocytes # (auto) 1.7 uL; Mean Corpuscular Hgb Conc. 32.8 g/dL (32.0-36.0); Mean Corpuscular Volume 82.3 fL (80.0-100.0); Monocytes # (auto) 0.8 uL; Monocytes % (auto) 9.8 % (0.0-12.0); Neutrophils # (auto) 5.9 uL; Neutrophils % (auto) 68.7 % (37.0-80.0); Platelet Count (auto) 280 10^3/uL (140-450); Red Blood Cells 5.07 10^6/uL (4.0-5.20); White Blood Cell 8.6 10^3/uL (4.4-10.8)
[2019-10-18 10:14] LABS: BUN/Creatinine Ratio 16.4; Calcium 8.8 mg/dL (8.5-10.1)
[2019-10-18 12:26] VITALS: BP 166/73
[2019-10-18] MEDS ORDERED: TEMAZEPAM 15 MG CAP PO PRN (21:00)
[2019-10-18] MEDS ORDERED: ATORVASTATIN 20 MG TAB PO SCH (22:00)
== END 2019-10-18 15:53 | disposition home or self-care (01) | DRG 244 ==
LOC: EDBD 18:22 → EDUNIT# 18:22 → ER 18:22 → OVERFLOW 18:23 → ER 22:15 → OVERFLOW 10-18 15:53
PROVIDERS: ADMIT Nurse Practitioner; ATTEND Internal Medicine
DX: K57.31 Diverticulosis of large intestine without perforation or abscess with bleeding (principal); J44.9 Chronic obstructive pulmonary disease, unspecified; E87.1 Hypo-osmolality and hyponatremia; K21.9 Gastro-esophageal reflux disease without esophagitis; E78.5 Hyperlipidemia, unspecified; I10 Essential (primary) hypertension; Z86.73 Personal history of transient ischemic attack (TIA), and cerebral infarction without residual deficits; F41.9 Anxiety disorder, unspecified; Z88.0 Allergy status to penicillin
CPT/HCPCS: 36415; 74176; 80048; 80053; 81001; 83605; 83735; 83880; 84443; 84484; 85025; 85610; 85730; 86850; 86900; 86901; 96361; 96374; 96375; G0378; J2405

== ENCOUNTER → 2021-11-11 | Outpatient (CLI) | payer MEDICARE, MEDICAID ==
[~2021-11-11] MED LIST changes: +IOHEXOL 350 MG/ML 100ML IJ ONE; -LISI-646 PO; +LISI20TA28 PO; -LORA0.5T12 PO; +LORA0.5T20 PO
[2021-11-11 10:49] VITALS: BP 127/66
[2021-11-11 12:18] VITALS: BP 141/62
== END | disposition home or self-care (01) ==
LOC: Rad HDHVI 10:41
PROVIDERS: ATTEND Internal Medicine
DX: R94.4 Abnormal results of kidney function studies (principal)
CPT/HCPCS: 36415; 82565; G0463; Q9967

== ENCOUNTER → 2022-01-08 | Outpatient (CLI) | payer MEDICARE, MEDICAID ==
[~2022-01-08] MED LIST changes: -IOHEXOL 350 MG/ML 100ML IJ ONE
[2022-01-08 11:34] LABS: Urine Blood Negative /uL (Negative); Urine Specific Gravity 1.008 (1.001-1.035)
[2022-01-08 11:45] LABS: Albumin 3.1 g/dL (3.4-5.0); Calcium 9.2 mg/dL (8.5-10.1); Potassium 4.3 mmol/L (3.5-5.1)
[2022-01-08 11:51] LABS: BUN/Creatinine Ratio 14.1; Bilirubin, Total 0.4 mg/dL (0.2-1.0); Free T4 (Free Thyroxine) 1.2 ng/dL (0.89-1.76)
[2022-01-08 11:53] LABS: Basophils # (auto) 0 10 ^3/uL (0-0.2); Basophils % (auto) 0.7 % (0.0-2.0); Eosinophils # (auto) 0.3 10 ^3/uL (0-0.8); Eosinophils % (auto) 4.8 % (0.0-7.0); Hematocrit 42.3 % (36.0-46.0); Hemoglobin 13.5 g/dL (12.2-16.2); Lymphocytes # (auto) 1.7 10 ^3/uL (0.4-5.4); Lymphocytes % (auto) 24.3 % (10.0-50.0); Mean Corpuscular Hemoglobin 27.8 pg (28.0-32.0); Mean Corpuscular Volume 86.8 fL (80.0-100.0); Monocytes # (auto) 0.6 10 ^3/uL (0-1.3); Monocytes % (auto) 8.5 % (0.0-12.0); Neutrophils # (auto) 4.3 10 ^3/uL (1.6-8.6); Neutrophils % (auto) 61.7 % (37.0-80.0); Red Blood Cells 4.87 10^6/uL (4.0-5.20); Red Cell Distribution Width 14.4 % (11.8-14.3)
== END | disposition home or self-care (01) ==
LOC: LAB 08:27
PROVIDERS: ATTEND Internal Medicine
DX: E11.9 Type 2 diabetes mellitus without complications (principal); E55.9 Vitamin D deficiency, unspecified; D51.3 Other dietary vitamin B12 deficiency anemia; D64.9 Anemia, unspecified; I10 Essential (primary) hypertension; R00.2 Palpitations; R53.1 Weakness; R30.0 Dysuria
CPT/HCPCS: 36415; 80053; 80061; 81003; 82306; 82607; 83036; 84439; 84443; 85025